=== PATIENT | female | born 1955 | race Caucasian/White ===

== ENCOUNTER 2020-02-12 05:59 | Day surgery (SDC) | payer OTHER ==
[~2020-02-12] VITALS: Ht 160 cm; Wt 61.2 kg
[2020-02-12 07:18] LABS: BASOPHILS # (AUTO) 0.1 K/uL (0.00-0.22); BASOPHILS % (AUTO) 1.1 % (0.0-2.0); EOSINOPHILS # (AUTO) 0.1 K/uL (0-0.4); EOSINOPHILS % (AUTO) 2.3 % (0.0-4.0); HEMATOCRIT 38.1 % (36-48); HEMOGLOBIN 12.3 g/dL (12.0-16.0); LYMPHOCYTES # (AUTO) 1.9 K/uL (2.5-16.5); LYMPHOCYTES % (AUTO) 40.5 % (20.5-51.1); MEAN CORPUSCULAR HEMOGLOBIN 27 pg (27-31); MEAN CORPUSCULAR HGB CONC 32 g/dL (33-37); MEAN CORPUSCULAR VOLUME 82.9 fL (80-94); MONOCYTES # (AUTO) 0.5 K/uL (0.8-1.0); MONOCYTES % (AUTO) 9.8 % (1.7-9.3); NEUTROPHILS # (AUTO) 2.1 K/uL (1.8-7.7); NEUTROPHILS % (AUTO) 46.3 % (42.2-75.2); PLATELET COUNT (AUTO) 224 K/uL (140-450); WHITE BLOOD COUNT (AUTO) 4.6 K/uL (4.8-10.8)
[2020-02-12] MEDS ORDERED: LIDOCAINE 1% 500 MG/50 ML VIAL ONE (07:18)
[2020-02-12] MEDS ORDERED: BUPIVACAINE-MPF 0.25% 30 ML VIAL INJ ONE (07:18)
[2020-02-12 07:33] LABS: RED CELL DISTRIBUTION WIDTH 23.3 % (11.6-13.7)
[2020-02-12] MEDS ORDERED: PROPOFOL 200 MG/20 ML VIAL IV ONE (07:40)
[2020-02-12] MEDS ORDERED: fentaNYL 0.05 MG/ML VIAL ONE (07:40)
[2020-02-12] MEDS ORDERED: ROCURONIUM 50 MG/5 ML VIAL IV ONE (07:40)
[2020-02-12] MEDS ORDERED: GLYCOPYRROLATE 0.2 MG/ML VIAL ONE (07:40)
[2020-02-12] MEDS ORDERED: METOCLOPRAMIDE 10 MG/2 ML INJ VIAL ONE (07:40)
[2020-02-12] MEDS ORDERED: NEOSTIGMINE 1:1000 10 MG/10 ML VIAL ONE (07:40)
[2020-02-12] MEDS ORDERED: LIDOCAINE 2% 100 MG/5 ML SYR IVP ONE (07:40)
[2020-02-12] MEDS ORDERED: ONDANSETRON 4 MG/2 ML VIAL ONE (07:40)
[2020-02-12] MEDS ORDERED: SEVOFLURANE 250 ML BTL INH ONE (07:40)
[2020-02-12] MEDS ORDERED: ceFAZolin 1,000 MG VIAL ONE (08:00)
[2020-02-12] MEDS ORDERED: MEPERIDINE 25 MG/ML SYR IVP PRN (08:50)
[2020-02-12] MEDS ORDERED: LACTATED RINGERS 1,000 ML IV SCH (08:50)
[2020-02-12] MEDS ORDERED: diphenhydrAMINE 50 MG/ML VIAL IVP PRN (08:50)
[2020-02-12] MEDS ORDERED: HYDROmorphone 1 MG/ML AMP IVP PRN (08:50)
[2020-02-12] MEDS ORDERED: ONDANSETRON 4 MG/2 ML VIAL IVP PRN (08:50)
== END 2020-02-12 10:55 | disposition home or self-care (01) ==
LOC: MDS 05:59 → MMU 06:08 → MDS 10:55
PROVIDERS: ATTEND Surgery
DX: K64.1 Second degree hemorrhoids (principal); K64.4 Residual hemorrhoidal skin tags; M19.90 Unspecified osteoarthritis, unspecified site; F41.9 Anxiety disorder, unspecified; F32.9 Major depressive disorder, single episode, unspecified; E78.5 Hyperlipidemia, unspecified; K21.9 Gastro-esophageal reflux disease without esophagitis; M81.0 Age-related osteoporosis without current pathological fracture
CPT/HCPCS: 36415; 46250; 71045; 85025; 88304; J0690; J2001; J2405; J2704; J2710; J2765; J3010; J3490; J7120